=== PATIENT | male | born 1995 | race Caucasian/White ===

== ENCOUNTER 2016-09-20 19:26 | Emergency (ER) | payer OTHER ==
[2016-09-20 19:33] VITALS: BP 134/69
--- NOTE | 2016-09-20 20:07 | UC ---
Mackenzie Granda Rebecca, scribed for Tejal Valerio MD on 09/20/16 at 1942 . General HPI - HPI Summary HPI Summary: Pt is a 20 y/o M who presents to ED with concerns over Lyme Disease. [place], 3 weeks ago after which he did not remove or see any ticks. 3 days ago he began experiencing intermittent fever (tmax 101.3) and chills (alleviated by Ibuprofen, last taken at 1630 today), QUINTEROS, myalgias and decreased appetite. Pt also reports fatigue. no nauesa, vomiting. Fever was 101.3 last night. Additionally c/o bug bite on the right upper thigh with a surrounding rash. Pt states first noted rash on Saturday, but has gotten bigger since. Associated pain is currently mild, ranked 2/10. Denies CP, SOB, abd pain and N/V/D. Works selling lumber. Was in [place] a few months ago. - History of Current Complaint Chief Complaint: UCGeneralIllness Stated Complaint: BUG BITE,FEVER,HEADACHE Time Seen by Provider: 09/20/16 19:40 Hx Obtained From: Patient Onset/Duration: Lasting Days - 3 days, Still Present Timing: Intermittent Episodes Lasting: Current Severity: Mild Pain Intensity: 2 Pain Location at: Myalgias, QUINTEROS Aggravating: Nothing Alleviating: Fever and chills - Ibuprofen Associated Signs & Symptoms: Positive: Fever, Headache, Other - Decreased appetite, myalgias, bug bite on the right upper thigh with a surrouning rash. Negative: Abdominal Pain, Diarrhea, Nausea, Vomiting - Allergy/Home Medications Allergies/Adverse Reactions: Allergies Allergy/AdvReac Type Severity Reaction Status Date / Time No Known Allergies Allergy Verified 09/20/16 19:33 Home Medications: Home Medications Propranolol TAB* [Inderal TAB*] 09/20/16 [History] PMH/Surg Hx/FS Hx/Imm Hx Previously Healthy: No Neurological History: Migraine - Surgical History Surgical History: None - Family History Known Family History: Positive: Diabetes - Social History Occupation: Employed Full-time - [employer] Alcohol Use: Occasionally Substance Use Type: None Smoking Status (MU): Never Smoked Tobacco Review of Systems Constitutional: Fever, Chills Skin: Rash - Bug bite on the right upper thigh with a surrounding rash Eyes: Negative ENT: Negative Respiratory: Negative Cardiovascular: Negative Gastrointestinal: Other - decreased appetitie Genitourinary: Negative Motor: Negative Neurovascular: Negative Musculoskeletal: Myalgia Neurological: Headache All Other Systems Reviewed And Are Negative: Yes - Comments Additional Review of Systems Comments: NEGATIVE: CP, SOB, abd pain and N/V/D. Physical Exam Triage Information Reviewed: Yes Appearance: Well-Appearing, No Pain Distress, Well-Nourished Vital Signs: Initial Vital Signs Temp 100.7 F 09/20/16 19:28 Pulse 70 09/20/16 19:28 Resp 12 09/20/16 19:28 BP 134/69 09/20/16 19:28 Pulse Ox 99 09/20/16 19:28 Eye Exam: Normal Eyes: Positive: Conjunctiva Clear ENT Exam: Normal ENT: Positive: Normal ENT inspection, Hearing grossly normal, Pharynx normal, TMs normal Dental Exam: Normal Neck exam: Normal Neck: Positive: Supple, Nontender, No Lymphadenopathy Respiratory Exam: Normal Respiratory: Positive: Chest non-tender, Lungs clear, Normal breath sounds, No respiratory distress, No accessory muscle use Cardiovascular Exam: Normal Cardiovascular: Positive: RRR, No Murmur, Pulses Normal Abdominal Exam: Normal Abdomen Description: Positive: Nontender, No Organomegaly, Soft Bowel Sounds: Positive: Present Musculoskeletal Exam: Normal Musculoskeletal: Positive: Strength Intact Neurological Exam: Normal Neurological: Positive: Alert Psychological Exam: Normal Psychological: Positive: Normal Response To Family Skin: Positive: rashes - Right proximal medial/anterior thigh pt with 4cm diameter light red rash - flat - target sign in appearance no warmth Course/Dx - Course Course Of Treatment: Patient medications reviewed this visit. Concern for lyme disease given rash and other systemic complaints. Low grade fevers. Will start doxy for 21 days course. will check serology. motrin/apap. Pt advised to f/u with PCP in [place] next week - call for an appointment - Differential Dx - Multi-Symptom Provider Diagnoses: lyme disease Discharge - Discharge Plan Condition: Stable Disposition: HOME Prescriptions: DOXYcycline CAP(*) [DOXYcycline 100MG CAP(*)] 100 mg PO BID #42 cap Patient Education Materials: Lyme Disease (ED) Additional Instructions: - The doctor that evaluated you today is concerned you have Lyme's disease based on your symptoms and your rash. - You had a blood test today to further evaluate you for Lyme. You have also been started on the treatment. It is very important you schedule a follow-up appointment with your primary care provider for early next week - It is recommended you alternate ibuprofen (Motrin, Advil) and Tylenol every 3 hours for pain or fever. Take with food - do NOT take for more than 4-5 days Get plenty of restful sleep Call your doctor or return with questions or concerns The documentation as recorded by the Mackenzie shabazz Rebecca accurately reflects the service I personally performed and the decisions made by me, Tejal Valerio MD.
== END 2016-09-20 20:23 | disposition home or self-care (01) ==
LOC: UCEAST 19:26
DX: A69.20 Lyme disease, unspecified (principal)
CPT/HCPCS: 86618; 99202; G0463